=== PATIENT | female | born 1975 | race African-American/Black ===

== ENCOUNTER 2021-05-05 20:26 | Emergency (ER) | payer OTHER ==
[~2021-05-05] VITALS: Ht 165.1 cm; Wt 68.0 kg
--- NOTE | 2021-05-05 20:40 | NUR ---
TO ER BED 9. BIBRA 860 FROM HOME C/O SUDDEN NON RADIATING EPIGASTRIC PAIN 10/10 P/S X 2 HOURS. PAIN BEGAN WHILE AT REST, DENIES N/V, CHEST PAIN OR SOB. CHANGED INTO GOWN. CONNECTED TO MONITOR. AWAITING MD LINDSAY
--- NOTE | 2021-05-05 20:54 | NUR ---
URINE SAMPLE COLLECTED AND SENT TO LAB
--- NOTE | 2021-05-05 21:03 | NUR ---
LAB AT BEDSIDE
[2021-05-05 21:28] LABS: BASOPHILS % (AUTO) 0.4 % (0.0-2.0); EOSINOPHILS % (AUTO) 0.5 % (0.0-6.0); HEMATOCRIT 36 % (33-45); LYMPHOCYTES # (AUTO) 1.4 K/uL (0.8-4.8); LYMPHOCYTES % (AUTO) 20.6 % (20.0-44.0); MEAN CORPUSCULAR HGB CONC 33 g/dl (31.0-36.0); MEAN CORPUSCULAR VOLUME 96 fL (82-100); MONOCYTES # (AUTO) 0.5 K/uL (0.1-1.30); NEUTROPHILS # (AUTO) 4.7 K/uL (1.8-8.9); NEUTROPHILS % (AUTO) 70.5 % (43.0-81.0); PLATELET COUNT (AUTO) 274 K/uL (150-450); RED BLOOD CELL COUNT(AUTO) 3.73 MIL/uL (4.0-5.2); WHITE BLOOD COUNT (AUTO) 6.6 K/uL (4.3-11.0)
[2021-05-05 21:44] LABS: CALCIUM, SERUM 8.8 mg/dL (8.5-10.1); CREATININE 0.7 mg/dL (0.6-1.3); POTASSIUM 4.2 mmol/L (3.5-5.1)
[2021-05-05 21:55] LABS: ALBUMIN 3.8 g/dL (3.4-5.0); BILIRUBIN,DIRECT 0.2 mg/dL (0.0-0.2); BILIRUBIN,TOTAL 0.8 mg/dL (0.2-1.0)
[2021-05-05 21:56] LABS: TOTAL PROTEIN, SERUM 7.4 g/dL (6.4-8.2)
[2021-05-05 22:12] LABS: BILIRUBIN,URINE NEGATIVE (NEGATIVE); COLOR,URINE YELLOW (YELLOW); LEUKOCYTE ESTERASE ,URINE MODERATE (NEGATIVE); NITRITE, URINE NEGATIVE (NEGATIVE); PROTEIN,URINE NEGATIVE (NEGATIVE); UGLUCOSE NEGATIVE (NEGATIVE); UROBILINOGEN,URINE 0.2 EU/dL (0.2)
[2021-05-05] MEDS ORDERED: ONDANSETRON HCL/PF 4 MG/2 ML VIAL ONE (22:23)
[2021-05-05] MEDS ORDERED: MORPHINE SULFATE INJ 4 MG/ML DISP.SYRIN ONE (22:24)
[2021-05-05] MEDS ORDERED: ONDANSETRON HCL/PF 4 MG/2 ML VIAL IV ONE (22:30)
[2021-05-05] MEDS ORDERED: MORPHINE SULFATE INJ 2 MG/ML DISP.SYRIN IV ONE (22:30)
[2021-05-05 22:31] LABS: BACTERIA,URINE Many /HPF (None Seen); SQUAMOUS EPITHELIAL CELL,UR Few /HPF (None Seen); WBC,URINE TOO NUMEROUS TO COUN /HPF (0-3)
--- NOTE | 2021-05-05 22:44 | NUR ---
IV LINE ESTABLISHED. RFA 22G
--- NOTE | 2021-05-05 22:46 | NUR ---
ULTRASOUND AT BEDSIDE
[2021-05-06] MEDS ORDERED: NITR100C6 PO (01:15)
--- NOTE | 2021-05-06 01:24 | NUR ---
IV removed. Catheter intact and site benign. Pressure and 4x4 applied to site. No bleeding noted.
--- NOTE | 2021-05-06 01:25 | NUR ---
Patient discharged to home in stable condition. Written and verbal after care instructions given. Patient verbalizes understanding of instruction.
[2021-05-06 01:26] VITALS: BP 124/73
[2021-05-06] MEDS ORDERED: NITROFURANTOIN/MONOHYDRATE MACROCRYSTALS 100 MG CAPSULE PO ONE (01:30)
== END 2021-05-06 01:27 | disposition home or self-care (01) ==
LOC: ER 20:29
DX: N39.0 Urinary tract infection, site not specified (principal); K82.8 Other specified diseases of gallbladder; R10.13 Epigastric pain; Z60.2 Problems related to living alone; Z79.899 Other long term (current) drug therapy
CPT/HCPCS: 36415; 74176; 76705; 80048; 80076; 81001; 83690; 84703; 85025; 87077; 87086; 87186; 93005; 96374; 96375; 99285; J2270; J2405

== ENCOUNTER 2022-09-04 13:53 | Emergency (ER) | payer MEDICAID, OTHER ==
[~2022-09-04] VITALS: Ht 167.6 cm; Wt 64.9 kg
[~2022-09-04 13:53] MED LIST: NITR100C6 PO
--- NOTE | 2022-09-04 14:06 | NUR ---
CONSTIPATED X 6 DAYS, PASSING OUT "BALLS", WAS AT [facility] YESTERDAY FOR SAME COMPLAINT
[2022-09-04] MEDS ORDERED: PEG 3350/NA SULF,BICARB,CL/KCL 4,000 ML BOTTLE PO ONE (15:00)
--- NOTE | 2022-09-04 16:20 | NUR ---
DR SCHREIBER AT BED SIDE.DISCUSSING ABOUT HOW TO TAKE MEDICATION AND CHAITANYA.
--- NOTE | 2022-09-04 16:27 | NUR ---
ASKED PATIENT BEFORE LEAVE THE HOSPITAL THAT DO YOU WANT TO TALK TO DR SCHREIBER AGAIN ,SHE IS DENIED.
--- NOTE | 2022-09-04 16:28 | NUR ---
Patient discharged to home in stable condition. Written and verbal after care instructions given. Patient verbalizes understanding of instruction.
[2022-09-04 16:31] VITALS: BP 106/66; TEMP 98.8
== END 2022-09-04 16:34 | disposition home or self-care (01) ==
LOC: ER 13:56
DX: K59.00 Constipation, unspecified (principal)